=== PATIENT | male | born 1990 | race Caucasian/White ===

== ENCOUNTER 2017-09-28 07:11 | Emergency (ER) | payer BC ==
[~2017-09-28] VITALS: Ht 172.7 cm; Wt 90.7 kg
[2017-09-28] MEDS ORDERED: subutex PO (07:20)
[2017-09-28] MEDS ORDERED: Augmentin 875mg Tab ORAL ONE (08:30)
--- NOTE | 2017-09-28 08:52 | Emergency Room Report ---
History of Present Illness General Chief Complaint: General Complaint Source: Patient Present Illness HPI This patient states that he has some blisters on his feet and his hands. He states that he isn't quite sure what happened or why he has blisters. He initially stated that he doesn't recall. Further questioning, reveals that he states he went on a drug binge. He states he doesn't know what he injected into his arm. He states that he has pain all over his body. He initially stated he couldn't find his car where his phone. However, he later states he did park his car across the street. When asked if he has a place to live he states he is technically not homeless. When I asked him to explain, he states that he was supposed to be going to a sober living and he went and partied and never checked in to the sober living facility. He states he wants to call his mom and dad in [place] who support him. However, he states he did lose his phone in the process. He states he is on Suboxone and hasn't had a in a couple days and believes this is why he isn't feeling great. Allergies: Coded Allergies: No Known Allergies (Unverified , 09/28/17) Patient History Past Medical History: none Past Surgical History: none Pertinent Family History: none Social History: Reports: smoking, alcohol use, drug use Reviewed Nursing Documentation: PMH: Agreed; PSxH: Agreed Nursing Documentation-PMH Past Medical History: No Stated History Review of Systems All Other Systems: negative except mentioned in HPI Physical Exam Vital Signs Date Time Temp Pulse Resp B/P (MAP) Pulse Ox O2 Delivery O2 Flow Rate FiO2 09/28/17 07:21 97.3 99 18 126/78 96 Room Air 97.3 Sp02 EP Interpretation: reviewed, normal General Appearance: no apparent distress, alert, GCS 15, non-toxic Head: normocephalic, atraumatic Eyes: bilateral eye normal inspection, bilateral eye PERRL ENT: hearing grossly normal, normal pharynx, no angioedema, normal voice Neck: full range of motion, supple/symm/no masses Respiratory: chest non-tender, lungs clear, normal breath sounds, no respiratory distress, no retraction, no accessory muscle use, speaking full sentences Cardiovascular #1: regular rate, rhythm, no edema Gastrointestinal: normal bowel sounds, non tender, soft, non-distended, no guarding, no rebound Rectal: deferred Musculoskeletal: back normal, gait/station normal, normal range of motion, non- tender Neurologic: alert, oriented x3, responsive, motor strength/tone normal, sensory intact, speech normal Psychiatric: judgement/insight normal, memory normal, mood/affect normal, no suicidal/homicidal ideation Skin: no rash, warm/dry, well hydrated, other - L. anticubital area with erythema and puncture wound c/w injection Medical Decision Making Diagnostic Impression: Primary Impression: Substance abuse ER Course This patient presents with substance abuse disorder. He appears to have been shooting up heroin based on the physical exam. The patient also kept changing his story/lying. He was attempting to manipulate the situation to obtain a place to stay. Eventually, the patient admitted that he had parked his car crossed the street. He did lose his phone. He continues to abuse street drugs. This patient a social and political studies professor evaluation. However, before the social and political studies professor arrived the patient eloped telling the RN that he was fine and didn't need any further help or evaluation. The patient was not on a hold. The patient adamantly declined that he was suicidal. The patient eloped without further evaluation. Laboratory Tests Test 09/28/17 08:25 Urine Opiates Screen Positive (NEGATIVE) H Urine Barbiturates Screen Negative (NEGATIVE) Phencyclidine (PCP) Screen Negative (NEGATIVE) Urine Amphetamines Screen Positive (NEGATIVE) H Urine Benzodiazepines Screen Negative (NEGATIVE) Urine Cocaine Screen Negative (NEGATIVE) Urine Marijuana (THC) Screen Positive (NEGATIVE) H Last Vital Signs Date Time Temp Pulse Resp B/P (MAP) Pulse Ox O2 Delivery O2 Flow Rate FiO2 09/28/17 08:28 97.3 09/28/17 07:21 99 18 126/78 96 Room Air Disposition: ELOPED Condition: Stable Referrals: NOT CHOSEN VICTORINO/,REFERRING (PCP) NALDO MORTENSEN D.O. Sep 28, 2017 08:52
[2017-09-28 09:00] VITALS: BP 126/78
== END 2017-09-28 09:00 | disposition left against medical advice (07) ==
LOC: EMR 08:10
DX: F11.10 Opioid abuse, uncomplicated (principal); S51.032A Puncture wound without foreign body of left elbow, initial encounter; X58.XXXA Exposure to other specified factors, initial encounter; Y92.9 Unspecified place or not applicable
CPT/HCPCS: 80307; 99283